=== PATIENT | female | born 1975 | race Caucasian/White ===

== ENCOUNTER 2019-02-15 11:02 | Emergency (ER) | payer OTHER ==
[2019-02-15 11:18] VITALS: BP 135/89
--- NOTE | 2019-02-15 12:30 | ED Physician Documentation ---
History of Present Illness - Stated complaint Stated Complaint: FLU LIKE SX - Chief complaint Chief Complaint: General - Additonal information Additional information: This is a 43-year-old female who presents with cough, fever, ear discomfort, sore throat. She states that she has had a intermittent cough for several months, but over the last 4 days has had some nasal congestion, and pressure in her ears. She has also had a tactile fever. She has had a cough productive of small to white sputum, no hemoptysis. She denies shortness of breath or chest pain other than she does have some mild rib soreness after repeated coughing. Review of Systems Constitutional: denies: Fever Respiratory: reports: Cough GI: denies: Abdominal Pain PD PAST MEDICAL HISTORY - Past Medical History Neuro: Seizure disorder - Present Medications Home Medications: Ambulatory Orders Medication Instructions Recorded Confirmed Benzonatate [Tessalon Perle] 100 - 200 mg PO TID PRN #30 capsule 02/15/19 - Allergies Allergies/Adverse Reactions: Allergies Allergy/AdvReac Type Severity Reaction Status Date / Time No Known Drug Allergies Allergy Verified 02/15/19 11:18 - Living Situation Living Arrangement: reports: At home - Social History Does the pt smoke?: No PD ED PE NORMAL - Vitals Vital signs reviewed: Yes - General General: Alert and oriented X 3, No acute distress - HEENT HEENT: PERRL, Other (Fluid behind TMs bilaterally, without erythema, bulging, or purulence.) - Neck Neck: Supple, no meningeal sign - Cardiac Cardiac: RRR, No murmur - Respiratory Respiratory: No respiratory distress, Clear bilaterally - Abdomen Abdomen: Soft, Non distended - Derm Derm: Warm and dry - Extremities Extremities: No deformity - Neuro Neuro: Alert and oriented X 3 - Psych Psych: Normal mood, Normal affect Results - Vitals Vitals: Oxygen O2 Source Room air - Rads (name of study) CXR Radiology: Other (No acute cardiopulmonary abnormality) PD MEDICAL DECISION MAKING - ED course ED course: Pt is well appearing, vitals unremarkable, no signs of pneumonia on CXR. Exam shows serous effusions with no suppurative otitis, or other bacterial infection requiring antibiotics. This appears to be a viral URI. I prescribed symptomatic control medications. Return precautions and follow up discussed and pt discharged in the care of family. Departure - Departure Disposition: 01 Home, Self Care Clinical Impression: Viral illness Condition: Good Instructions: ED Viral Syndrome Follow-Up: Your,PCP [Other] - Within 1 week Prescriptions: Benzonatate [Tessalon Perle] 100 - 200 mg PO TID PRN #30 capsule PRN Reason: Cough Comments: You appear to have a viral illness. Your x-ray does not show signs of a pneumonia. I think that the virus is also causing you to have some fluid behind your ears. You may take Tylenol 650 mg, ibuprofen 600 mg every 6 hours for fever or discomfort. You may also use a decongestant such as Sudafed or Benadryl 25 to 50 mg. Try the Tessalon Perles for cough. If having worsening symptoms such as difficulty breathing or blood in your sputum return to the emergency department. Otherwise follow-up with your primary care provider. Discharge Date/Time: 02/15/19 14:09
--- NOTE | 2019-02-15 13:28 | XRAY Report ---
Reason: cough Procedure Date: 02/15/2019 Accession Number: [id number] / [id number] Procedure: XR - Chest 2 View X-Ray CPT Code: 14611 Final Report FULL RESULT: EXAM: CHEST RADIOGRAPHY EXAM DATE: 02/15/2019 01:10 PM. CLINICAL HISTORY: Cough. COMPARISON: None. TECHNIQUE: 2 views. FINDINGS: Lungs/Pleura: No focal opacities evident. No pleural effusion. No pneumothorax. Normal volumes. Mediastinum: Heart and mediastinal contours are unremarkable. Other: Mild degenerative changes of the thoracic spine. IMPRESSION: 1. No acute disease in the chest. [facility]
[2019-02-15] MEDS ORDERED: BENZONATATE 100 MG CAPSULE PO STA (14:02)
== END 2019-02-15 14:09 | disposition home or self-care (01) ==
LOC: ED 11:02
DX: B34.9 Viral infection, unspecified (principal)
CPT/HCPCS: 71046; 99283; 99284; A9270